=== PATIENT | female | born 1940 | race Caucasian/White ===

== ENCOUNTER 2017-01-06 22:03 | Emergency (ER) | payer MEDICARE ==
--- NOTE | 2017-01-07 12:40 | ER ---
ADMIT: 01/06/2017 RM/LOC: ER [facility] MR#: [id number] [id number] LOLA DOBSON [address] [place] [address] Emergency Room Report SEX: F AGE: 76 : 1940 DATE: 01/06/2017 For chief complaint, history of present illness, past medical history, medications, allergies, review of systems, including physical exam, please see my T-sheet. INTERIM HISTORY: The patient is a 76-year-old white female, who comes in today with complaints of elevated blood pressure. She is worried about stroke- like symptoms. She thinks maybe it has been going on for all day. The patient states that she is having trouble finding her words. She has had elevated blood pressure in the past and they have been adjusting her medications to get that under control. She denies otherwise any focal symptoms. She reports that there has been no slurring of her speech, but she was having hard time with her memory today. PHYSICAL EXAMINATION: VITAL SIGNS: Blood pressure is 219/77, pulse 72, respirations 18, temp 97.5, pulse ox on room air 99%. GENERAL: The patient is alert and oriented x3, in no acute distress. HEART: Regular rate and rhythm without murmurs. LUNGS: Clear. NEUROLOGICAL: Cranial nerves II through XII are intact. No focal or neurologic deficit. The patient is alert, appropriate, not finding any difficulty with her words, appears to be normal for baseline. EMERGENCY ROOM COURSE: Laboratory evaluations include a CBC, CMP, and a head CT, which shows nothing acute. 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 The patient was given clonidine 0.2 mg here in the Emergency Department, her blood pressure is down to 151, she is actually feeling quite a bit better. IMPRESSION: Hypertension, uncontrolled. PLAN: Home, rest. Activity as tolerated. Continue to check her blood pressure 3 times a day. If blood pressure is over 180, I want her to take a clonidine 0.2 mg, otherwise she is to follow up with Dr. Hassan in the next 7 to 10 days for any medication adjustments. The patient is in stable condition at the time of discharge. GITA Bocanegra / Kumar Ruff MD / dunia JOB #: [id number] CC: Kumar Ruff MD, Attending Physician Manohar Hassan MD, Family Physician
== END 2017-01-06 23:55 | disposition home or self-care (01) ==
LOC: ER 22:03
DX: I10 Essential (primary) hypertension (principal); Z88.8 Allergy status to other drugs, medicaments and biological substances; Z79.899 Other long term (current) drug therapy

== ENCOUNTER 2017-01-07 16:35 | Emergency (ER) | payer MEDICARE ==
--- NOTE | 2017-01-08 16:41 | ER ---
ADMIT: 01/07/2017 RM/LOC: ER [facility] MR#: [id number] [id number] LOLA DOBSON [address] [place] [address] Emergency Room Report SEX: F AGE: 76 : 1940 DATE: 01/07/2017 ADDENDUM: A 76-year-old female coming in with transient speech problems. She feels like she just cannot get her words out sometimes though she has no other neurological deficits. She was here for high blood pressure yesterday, had a CT scan which was negative. We repeated the exam with an MRI which was also negative, so she has not had any stroke at this time. She does have hypertension and we are going to increase her lisinopril by 20 mg a day, and then she is to follow up with Dr. Hassan later this week. CONDITION ON DISCHARGE: Good. Nuno Felton MD/ dunia JOB #: [id number] CC: Nuno Felton MD, Attending Physician UNKNOWN, Family Physician
== END 2017-01-07 19:35 | disposition home or self-care (01) ==
LOC: ER 16:35
DX: R47.89 Other speech disturbances (principal); I10 Essential (primary) hypertension; Z88.9 Allergy status to unspecified drugs, medicaments and biological substances